=== PATIENT | male | born 1970 | race Caucasian/White ===

== ENCOUNTER 2018-08-24 08:33 | Emergency (ER) | payer SELFPAY ==
[~2018-08-24] VITALS: Ht 180.3 cm; Wt 72.2 kg
[2018-08-24 08:48] VITALS: BP 126/84
[2018-08-24 09:54] LABS: BASOPHILS # (AUTO) 0.1 X10'3 (0-0.2); BASOPHILS % (AUTO) 0.5 % (0-1); EOSINOPHILS # (AUTO) 0.1 X10'3 (0-0.9); EOSINOPHILS % (AUTO) 1.3 % (0-6); HEMATOCRIT 54.2 % (42.0-52.0); LYMPHOCYTES # (AUTO) 2.8 X10'3 (1.1-4.8); LYMPHOCYTES % (AUTO) 26.7 % (21-51); MEAN CORPUSCULAR HEMOGLOBIN 32.2 PG (27.0-31.0); MEAN CORPUSCULAR HGB CONC 34.7 % (33.0-36.5); MEAN CORPUSCULAR VOLUME 92.7 FL (78-98); MONOCYTES # (AUTO) 0.8 X10'3 (0-0.9); MONOCYTES % (AUTO) 7.4 % (2-12); NEUTROPHILS # (AUTO) 6.7 X10'3 (1.8-7.7); NEUTROPHILS % (AUTO) 64.1 % (42-75); PLATELET COUNT 212 X10'3 (140-440); RED BLOOD COUNT 5.84 X10'6 (4.70-6.10); RED CELL DISTRIBUTION WIDTH 13.3 % (11.5-14.5); WHITE BLOOD COUNT 10.4 X10'3 (4.5-11.0)
[2018-08-24 09:56] LABS: HEMOGLOBIN 18.8 g/dl (14.0-17.9)
[2018-08-24 10:03] LABS: PROTHROMBIN TIME 9.9 SECONDS (9.0-12.0)
[2018-08-24 10:13] LABS: ALANINE AMINOTRANSFERASE 38 U/L (12-78); ALBUMIN 3.4 G/DL (3.4-5.0); ALBUMIN/GLOBULIN RATIO 1.2 (1.1-1.5); ALKALINE PHOSPHATASE 65 IU/L (46-116); ANION GAP 8 (8-16); ASPARTATE AMINO TRANSFERASE 28 U/L (10-37); BILIRUBIN,TOTAL 0.8 MG/DL (0.1-1.0); BLOOD UREA NITROGEN 9 MG/DL (7-18); BUN/CREATININE RATIO 6.4 (5.4-32.0); CALCIUM 8.5 MG/DL (8.5-10.1); CHLORIDE 107 MMOL/L (99-107); CREATININE 1.41 MG/DL (0.60-1.10); GLUCOSE 98 MG/DL (70-104); SODIUM 140 MMOL/L (135-145); TOTAL CARBON DIOXIDE 24.9 MMOL/L (24-32); TOTAL PROTEIN 6.3 G/DL (6.4-8.2); eGFR 54 ML/MIN
[2018-08-24] MEDS ORDERED: TRAM50TA2 PO (10:26)
== END 2018-08-24 10:43 | disposition home or self-care (01) ==
LOC: ER 08:33
DX: S70.12XA Contusion of left thigh, initial encounter (principal); S80.812A Abrasion, left lower leg, initial encounter; F12.90 Cannabis use, unspecified, uncomplicated; Z98.890 Other specified postprocedural states; Z79.899 Other long term (current) drug therapy; V89.2XXA Person injured in unspecified motor-vehicle accident, traffic, initial encounter; Y93.89 Activity, other specified; Y92.410 Unspecified street and highway as the place of occurrence of the external cause; Y99.8 Other external cause status
CPT/HCPCS: 36415; 73502; 73552; 80053; 85025; 85610; 86885; 86900; 86901; 99285

== ENCOUNTER 2019-01-08 09:25 | Emergency (ER) | payer SELFPAY ==
[~2019-01-08] VITALS: Ht 172.7 cm; Wt 75.0 kg
[2019-01-08 09:43] VITALS: BP 116/74
--- NOTE | 2019-01-08 11:56 | NUR ---
PELT SHEARER WILL BE HERE SHORTLY
--- NOTE | 2019-01-08 12:00 | NUR ---
VAS TECH HERE AT BEDSIDE
[2019-01-08] MEDS ORDERED: ketorolac tromethamine 15mg/ml inj. IM ONE (12:50)
[2019-01-08] MEDS ORDERED: IBUP-1985 PO (12:52)
== END 2019-01-08 13:32 | disposition home or self-care (01) ==
LOC: ER 09:25
DX: M25.561 Pain in right knee (principal); M79.89 Other specified soft tissue disorders; F12.90 Cannabis use, unspecified, uncomplicated; W22.03XA Walked into furniture, initial encounter; Y93.89 Activity, other specified; Y92.89 Other specified places as the place of occurrence of the external cause; Y99.8 Other external cause status
CPT/HCPCS: 29505; 73564; 93971; 96372; 99284; J1885

== ENCOUNTER 2019-08-26 12:55 | Inpatient (IN) | payer BC ==
[~2019-08-26] VITALS: Ht 172.7 cm; Wt 63.0 kg
[~2019-08-26 12:55] MED LIST: HYDR-4383 PO; IBUP-1985 PO; ONDA4TAB6 PO
[2019-08-26 13:25] LABS: BASOPHILS % (AUTO) 0.3 % (0-1); EOSINOPHILS # (AUTO) 0.1 X10'3 (0-0.9); EOSINOPHILS % (AUTO) 1.2 % (0-6); HEMATOCRIT 52.5 % (42.0-52.0); LYMPHOCYTES % (AUTO) 28.6 % (21-51); MEAN CORPUSCULAR HEMOGLOBIN 32.9 PG (27.0-31.0); MEAN CORPUSCULAR HGB CONC 35.5 g/dL (33.0-36.5); MEAN CORPUSCULAR VOLUME 92.7 FL (78-98); MONOCYTES # (AUTO) 0.8 X10'3 (0-0.9); NEUTROPHILS # (AUTO) 6.4 X10'3 (1.8-7.7); NEUTROPHILS % (AUTO) 61.9 % (42-75); PLATELET COUNT 206 X10'3 (140-440); RED BLOOD COUNT 5.66 X10'6 (4.70-6.10); RED CELL DISTRIBUTION WIDTH 13.2 % (11.5-14.5); WHITE BLOOD COUNT 10.4 X10'3 (4.5-11.0)
[2019-08-26 13:32] LABS: ALANINE AMINOTRANSFERASE 23 U/L (12-78); ALBUMIN 3.5 G/DL (3.4-5.0); ALKALINE PHOSPHATASE 74 IU/L (46-116); ANION GAP 5 (8-16); ASPARTATE AMINO TRANSFERASE 17 U/L (10-37); BILIRUBIN,TOTAL 0.8 MG/DL (0.1-1.0); BLOOD UREA NITROGEN 13 MG/DL (7-18); BUN/CREATININE RATIO 9.2 (5.4-32.0); CALCIUM 8.4 MG/DL (8.5-10.1); CHLORIDE 106 MMOL/L (99-107); CREATININE 1.42 MG/DL (0.60-1.10); GLUCOSE 85 MG/DL (70-104); POTASSIUM 3.8 MMOL/L (3.5-5.1); SODIUM 141 MMOL/L (135-145); TOTAL CARBON DIOXIDE 30.3 MMOL/L (24-32); eGFR 53 ML/MIN
[2019-08-26 13:37] LABS: MAGNESIUM 2.1 MG/DL (1.5-2.4)
[2019-08-26 13:52] LABS: HEMOGLOBIN 18.6 g/dl (14.0-17.9)
[2019-08-26 15:10] LABS: D-DIMER 0.24 MG/L FEU (0-0.50)
[2019-08-26] MEDS ORDERED: ESOM20CA PO (15:35)
[2019-08-26] MEDS ORDERED: aspirin 81mg tab.chew PO ONE (16:00)
[2019-08-26 16:07] LABS: ETHANOL < 0.010 GM/DL (0.0-0.010)
[2019-08-26] MEDS ORDERED: acetaminophen 325mg tablet PO PRN ×2 (16:25)
[2019-08-26] MEDS ORDERED: magnesium Cl slow-release 64mg tablet PO PRN (16:25)
[2019-08-26] MEDS ORDERED: normal saline 1000ml 1,000 ML IV SCH (16:25)
[2019-08-26] MEDS ORDERED: magnesium 4gm in 100ml NS 100 ML IV PRN (16:25)
[2019-08-26] MEDS ORDERED: magnesium hydroxide 30ml (MOM) UD suspension PO PRN (16:25)
[2019-08-26] MEDS ORDERED: ondansetron/PF 4mg/2ml inj IV PRN (16:25)
[2019-08-26] MEDS ORDERED: mag hydrox/Alum hydrox/simeth 30ml oral suspension PO PRN (16:25)
[2019-08-26] MEDS ORDERED: magnesium 2GM in 50ml NS 50 ML IV PRN (16:25)
[2019-08-26] MEDS ORDERED: potassium CL 10mEq/100ml bag 100 ML IV PRN ×2 (16:25)
[2019-08-26] MEDS ORDERED: HYDROcodone/acetaminophen 5mg/325mg tablet PO PRN (16:25)
[2019-08-26] MEDS ORDERED: potassium Cl 20 mEq SR tablet PO PRN ×2 (16:25)
[2019-08-26] MEDS ORDERED: morphine 2 MG/ML inj. syringe IV PRN (16:25)
[2019-08-26 16:26] LABS: URINE AMPHETAMINE SCREEN NEGATIVE (Neg); URINE BARBITUATE SCREEN NEGATIVE (Neg); URINE BENZODIAZEPINES SCREEN NEGATIVE (Neg); URINE CANNABINOID SCREEN POSITIVE (Neg); URINE COCAINE SCREEN NEGATIVE (Neg); URINE METHADONE SCREEN NEGATIVE (Neg); URINE OPIATE SCREEN NEGATIVE (Neg); URINE PHENCYCLIDINE SCREEN NEGATIVE (Neg)
[2019-08-26] MEDS ORDERED: metoprolol tartrate 1mg/ml inj IV PRN (16:50)
[2019-08-26] MEDS ORDERED: regadenoson 0.4mg/5ml syringe IV ONE (16:50)
[2019-08-26] MEDS ORDERED: nitroGLYCERIN 0.4mg SUBLingual tab SL PRN (16:50)
[2019-08-26] MEDS ORDERED: aminophylline 250mg/10ml inj. IV PRN (16:50)
[2019-08-26] MEDS ORDERED: nicotine 14mg patch - 24hr TD SCH (17:45)
[2019-08-26 18:10] VITALS: BP 131/74
--- NOTE | 2019-08-26 18:11 | NUR ---
RELIEVING RN FOR BREAK, PT IS RESTING QUIETLY ON GURNEY, RESP EVEN AND UNLABORED, GAVE PT CRACKERS, CHEESE AND WATER, LICHA WELL, NO N/V, PT IS AWARE NO CAFFEINE UNTIL AFTER LEXISCAN AND NPO POST MIDNIGHT
--- NOTE | 2019-08-26 18:37 | NUR ---
Patient in room ED 15. I have received report from FLORINA LUBIN IN ER and had the opportunity to ask questions and assume patient care.
--- NOTE | 2019-08-26 18:53 | NUR ---
NOTIFIED PAGER ID: [phone] MESSAGE: Willie Atkins, [id number]- pt is requesting to leave AMA. PCU unit
--- NOTE | 2019-08-26 19:13 | NUR ---
PT LEAVING AMA Arrived in room for vital signs and to settle patient after transfer, pt stated "pull this IV I'm leaving". asked pt what was going on, pt states that he has to go outside to smoke a cigarette and move his truck. pt was informed about the hospital policy and that we were not able to accommodate his request but that he can have a nicotine patch and his son could move his truck for him, his son would be welcome to come to his room and retrieve his truck keys. education was provided on the reason for his current admission and the possible medical consequences of leaving. pt states that he needs to leave and he will follow up with his PCP. AMA paperwork provided and signed by pt.
[2019-08-26] MEDS ORDERED: heparin, porcine 5000 units/ml vial SQ SCH (20:00)
[2019-08-26] MEDS ORDERED: temazepam 15mg capsule PO PRN (21:00)
[2019-08-27] MEDS ORDERED: pantoprazole 40mg Tablet.DR PO SCH (07:30)
[2019-08-27] MEDS ORDERED: K and/or MAG REPLACEMENT MC SCH (08:00)
== END 2019-08-26 19:05 | disposition left against medical advice (07) | DRG 313 ==
LOC: ER 12:55 → ED HOLD 16:54 → PCU 3S 18:50
PROVIDERS: ADMIT Internal Medicine; ATTEND Internal Medicine
DX: R07.89 Other chest pain (principal); D75.1 Secondary polycythemia; F12.90 Cannabis use, unspecified, uncomplicated; F17.210 Nicotine dependence, cigarettes, uncomplicated; M06.9 Rheumatoid arthritis, unspecified; N18.9 Chronic kidney disease, unspecified; M19.90 Unspecified osteoarthritis, unspecified site; Z53.29 Procedure and treatment not carried out because of patient's decision for other reasons
CPT/HCPCS: 36415; 71045; 80053; 80305; 80320; 83605; 83735; 83880; 84484; 85025; 85379; 87040; 93005; 93306; 96365; 96368; 96375; 99285; G0378; J7030

== ENCOUNTER 2020-07-06 12:27 | Emergency (ER) | payer BC, OTHER ==
[~2020-07-06] VITALS: Ht 172.7 cm; Wt 75.0 kg
[~2020-07-06 12:27] MED LIST changes: +ESOM20CA PO; -HYDR-4383 PO; -IBUP-1985 PO; -ONDA4TAB6 PO
[2020-07-06 12:48] VITALS: BP 115/78
[2020-07-06] MEDS ORDERED: azithromycin 250mg tablet PO ONE (14:05)
[2020-07-06] MEDS ORDERED: CefTRIAXone 250MG IM Kit w/LIDOcaine IM ONE (14:05)
== END 2020-07-06 15:06 | disposition home or self-care (01) ==
LOC: ER 12:27
DX: A64 Unspecified sexually transmitted disease (principal); M19.90 Unspecified osteoarthritis, unspecified site; F12.90 Cannabis use, unspecified, uncomplicated; Z98.890 Other specified postprocedural states; Z79.899 Other long term (current) drug therapy
CPT/HCPCS: 36415; 86592; 87491; 87591; 96372; 99283; J0696

== ENCOUNTER 2025-02-12 12:10 | Emergency (ER) | payer MEDICAID ==
[~2025-02-12] VITALS: Ht 172.7 cm; Wt 61.4 kg
[2025-02-12 12:10] VITALS: BP 121/71; PULSE 90; RESP 15; TEMP 98.9; O2SAT 97
[2025-02-12] MEDS: triamcinolone acetonide 40mg/ml inj IM ONE (13:44)
[2025-02-12] MEDS ORDERED: PRED20TA PO (13:46)
--- NOTE | 2025-02-12 13:47 | Physician Documentation ---
History of Present Illness ~ General Chief Complaint: Multiple Medical Complaints Stated Complaint: KNEE,LSHOULDER WRIST PAIN Time Seen by MD: 12:35 OK to notify your PCP?: Yes Primary Medical Doctor: DR KAHN Source: patient Mode of Arrival: POV Exam Limitations: no limitations History of Present Illness Initial Comments 54-year-old male with chief complaint left shoulder pain, right knee pain and bilateral wrist pain. He states he used to get a procedure but he got discharged from her stage because he said that he would not see a [facility] doctor. He states then they told me I was present is so I can go back there. he is wondering now what he can do about his joint pains. These have been ongoing. He is requesting injections in his joints which he states he used to get it for stage and found them very helpful. He states just anything that can hold me over until Friday because Friday I will just go see my orthopedist. he also reports that he has rheumatoid arthritis but is not on any medication for this. No swelling of joints, redness recent trauma or injuries. Medication Reconciliation Allergies: Coded Allergies: No Known Allergies (Unverified , 07/06/20) Scheduled Esomeprazole Magnesium (Nexium), 1 CAP PO DAILY, (Reported) Prednisone* (Prednisone*), 2 TAB PO QAM Past Medical History Past Medical History: Arthritis, Extremity Fracture, Rheumatoid Arthritis Past Surgical History: orthopedic surgeries Alcohol Use: None Drug Use: marijuana Lives with: S/O Lives In: Home Occupation: employed Review of Systems All Other Systems at this time: Reviewed and Negative Physical Exam Physical Exam Vital Signs: Temperature: 98.9, Source: Temporal, Heart Rate: 90, Respiratory Rate: 15, BP: 121/71, Pulse Oximetry: 97, Weight: 61.400 Physical Exam General Appearance: Alert, WD/WN. NAD. HEENT: NCAT, PERRL, EOMI. Neck: Supple, trachea midline. Cardiovascular: RRR. No m/r/g. Lungs: CTAB. Breathing unlabored Extremities: Wearing right knee brace. Need is not appear to be swollen. TTP over the medial joint space. TTP over left shoulder joint, reduced active range motion due to pain. Normal inspection of hands and wrist. No edema. Skin: Warm/dry, normal color Neurological: Alert and oriented x4, normal gait. Psychiatric: Affect congruent with mood. Progress Results/Orders Results/Orders Completed Orders - MAINOR AJ Triamcinolone Acet 40mg/Ml Inj (Kenalog- (02/12/25 13:30) Medications Received in ER Medications (Trade) Dose Ordered Sig/Crystal Route PRN Reason Start Time Stop Time Status Last Admin Dose Admin (Kenalog-40 inj) 60 mg ONCE ONCE IM 02/12/25 13:30 02/12/25 13:31 DC 02/12/25 13:44 60 MG Vital Signs 02/12/25 12:10 Temp 98.9 Pulse 90 Resp 15 B/P (MAP) 121/71 Pulse Ox 97 Medical Decision Making Differential Diagnosis Patient's complaints are all chronic pain no recent trauma or injury no sign of any acute injury or condition Departure Time of Disposition: 19:41 Disposition: 01 HOME / SELF CARE / HOMELESS Impression: Primary Impression: Joint pain Qualified Codes: M25.561 - Pain in right knee Additional Impression: Rheumatoid arthritis flare Condition: Stable Discharge Instructions: Acute Knee Pain, Adult Additional Instructions: F/U WITH ORTHOPEDIST AND PCP Referrals: NO PRIMARY CARE PROVIDER (PCP) Prescriptions Prednisone* (Prednisone*) 20 Mg Tablet 2 TAB PO QAM, #10 TAB Prov: MAINOR AJ 02/12/25 Education Educated: Patient Educated regarding: diagnosis, treatment, need for follow up Signature Scribe Signature: [email or web address] Attestation: MAINOR Stewart Feb 12, 2025 13:47
== END 2025-02-12 14:05 | disposition home or self-care (01) ==
LOC: ER 12:10
DX: M25.561 Pain in right knee (principal); M25.512 Pain in left shoulder; M25.531 Pain in right wrist; M25.532 Pain in left wrist; M06.9 Rheumatoid arthritis, unspecified; F12.90 Cannabis use, unspecified, uncomplicated
CPT/HCPCS: 96372; 99283; J3301